=== PATIENT | male | born 1980 | race American Indian/Alaskan Native ===

== ENCOUNTER 2020-03-08 16:01 | Emergency (ER) | payer SELFPAY ==
[2020-03-08 17:13] VITALS: BP 144/104
--- NOTE | 2020-03-08 17:34 | Emergency Department Report ---
Chief Complaint: Upper Respiratory Infection Stated Complaint: NO SMELL NO TASTE Time Seen by Provider: 03/08/20 17:20 - HPI History of Present Illness: This is a 39-year-old healthy looking male presents the ED complaining of loss of smell and taste for the past 2 days. Patient states been prescribed from visiting his family on a plane ride and landed this morning. Patient states that he has here to be evaluated he is unsure of exposure. Patient denies any fever, coughing, shortness of breath, chest pain, nausea vomiting. - ROS Review of Systems: All systems reviewed and negative - Exam Vital Signs: Vital Signs 03/08/20 03/08/20 17:06 17:13 Temperature 97.9 F Pulse Rate 89 Respiratory 18 Rate Blood Pressure 144/104 O2 Sat by Pulse 97 Oximetry Physical Exam: GENERAL: Alert and oriented x3, no apparent distress, Normal Gait, atraumatic. HEAD: Head is normocephalic and a-traumatic. EYES: Extra ocular muscles are intact. EARS: symetrical, atraumatic, non tender, ear canal clear and moderate cerumen, tympanic membrance non inflamed. gross auditory nml bilaterally. NOSE: Nose symetrical, Nontender,Nares appeared normal. MOUTH:Mouth is well hydrated and without lesions. Tonsils nonerythematous or swollen, Uvula midline, Tongue not elevated. Mucous membranes are moist. Posterior pharynx clear, no exudate or lesions. Patent airways. LUNGS: Symetrical with respiration, No wheezing, no rales or crackles, CTAB. HEART: S1, S2 present, regular rate and rhythm without murmur, no rubs, no gallops. Non tender to palpation SKIN: Warm and dry, No lesions, No ulceration or induration present. MSE screening note: Focused history and physical exam performed. Due to findings the following was ordered: ED Medical Decision Making - Medical Decision Making 30-year-old male presents with possible exposure to covid no fever during the ED stay. Discussed with patient symptomatic relief with [id number] medications. Discussed with patient COVID-19 testing is appropriate and mandatory and should be done as soon as possible. Discussed with patient for 14-day quarantine if test is positive. Discussed worsening of symptoms patient should return to ED immediately. Patient oxygen saturation stayed at 99% on room air during exertion and after exertion. Discussed continue Tylenol as needed for fever and pain. Discussed increase fluids and diet intake. Discussed rest much needed. Discussed daily vitamin C for immune booster. Discussed follow-up with pcp care physician in 3-5 days. Patient verbally states she understands and will comply the following instructions and follow-up Vital signs stable. Patient is in no acute or respiratory distress. Community resources given to patient for further testing. ED Disposition for MSE Clinical Impression: Loss of taste, Loss, sense of, smell, Exposure to COVID-19 virus Disposition: DC- TO HOME OR SELFCARE Is pt being admited?: No Does the pt Need Aspirin: No Condition: Stable Instructions: COVID-19, COVID-19 Additional Instructions: Follow-up with pcp. Be sure you follow-up to get tested as discussed. If you have any worsening symptoms please return to ED immediately. Referrals: [facility] [Outside] - 3-5 Days [facility] [Outside] - 3-5 Days Forms: Work/School Release Form(ED) Time of Disposition: 17:47
== END 2020-03-08 18:11 | disposition home or self-care (01) ==
LOC: ED 16:01
DX: R43.8 Other disturbances of smell and taste (principal); Z20.822 Contact with and (suspected) exposure to COVID-19; Z88.0 Allergy status to penicillin
CPT/HCPCS: 99282